=== PATIENT | male | born 1995 | race Caucasian/White ===

== ENCOUNTER → 2017-07-20 | Outpatient (CLI) | payer OTHER ==
[2017-07-20 14:16] LABS: MEAN PLATELET VOLUME 10.4 FL (7.4-10.4); RED BLOOD COUNT 4.95 10^6/uL (4.35-5.85); RED CELL DISTRIBUTION WIDTH 12.4 % (10.0-14.5); WHITE BLOOD COUNT 4.9 10^3/uL (4.3-11.0)
[2017-07-20 14:44] LABS: ALANINE AMINOTRANSFERASE 24 U/L (0-55); ALBUMIN 4.5 GM/DL (3.2-4.5); ANION GAP 6 MMOL/L (5-14); ASPARTATE AMINO TRANSFERASE 52 U/L (5-34); BLOOD UREA NITROGEN 20 MG/DL (7-18); BUN/CREATININE RATIO 25; CALCIUM 9.4 MG/DL (8.5-10.1); CARBON DIOXIDE 30 MMOL/L (21-32); CHLORIDE 105 MMOL/L (98-107); GFR ESTIMATED > 60; GLUCOSE 83 MG/DL (70-105); POTASSIUM 4.2 MMOL/L (3.6-5.0); SODIUM 141 MMOL/L (135-145); TOTAL PROTEIN 6.9 GM/DL (6.4-8.2)
== END ==
LOC: LAB 13:50
PROVIDERS: ATTEND Family Medicine
DX: D72.819 Decreased white blood cell count, unspecified (principal)
CPT/HCPCS: 36415; 80053; 85027; 86308

== ENCOUNTER → 2018-12-15 | Emergency (ER) | payer OTHER | LOC: ER 17:02 ==

== ENCOUNTER 2019-03-12 18:12 | Emergency (ER) | payer OTHER ==
[~2019-03-12] VITALS: Ht 177.8 cm; Wt 69.4 kg
--- OUTSIDE RECORDS SUMMARY | 2019-03-12 18:15 | XMS REPORT | Continuity of Care Document ---
Author Organization Unknown Address Unknown Allergies Active Description Code Type Severity Reaction Onset Reported/Identified Relationship to Patient Clinical Status Yes No Known Medication Allergies NKMA N/A N/A 07/02/2014 Yes No Known Medication Allergies NKMA N/A N/A 07/02/2014 Yes No Known Drug Allergies [id number] Drug Allergy Unknown N/A 12/15/2018 Medications Medication Packaging Start Date Stop Date Route Dosage Sig human papillomavirus vaccine(Gardasil type 6,11,16,18 intramuscular suspension) 0.5 mL 07/04/2015 07/04/2015 IntraMuscular 0.5 mL, IntraMuscular, Once meningococcal conjugate vaccine(Menveo intramuscular injection) 0.5 mL 05/19/2016 05/19/2016 IntraMuscular 0.5 mL, IntraMuscular, Once human papillomavirus vaccine(Gardasil 9) 0.5 mL 05/19/2016 05/19/2016 IntraMuscular 0.5 mL, IntraMuscular, Once erythromycin-benzoyl peroxide topical(Benzamycin 3%-5% topical gel ) 1 katelin 08/11/2016 Topical 1 katelin, Topical, BID, 46 g, 0 Refill( s) midazolam(Versed) 2 mL 01/13/2019 01/13/2019 IV Push 2 mg 2 mg=2 mL, IV Push, q3min, PRN: Sedation fentaNYL(Sublimaze) 1 mL 201801/13/2019 IV Push 50 mcg 50 mcg=1 mL, IV Push, q3min, PRN: Sedation Problems Date Dx Coded Attending Type Code Diagnosis Diagnosed By 07/05/2017 Arely Galan Final R53.83 Other fatigue 08/13/2017 ARELY GALAN MD, Ot D72.819 DECREASED WHITE BLOOD CELL COUNT, UNSPEC 08/13/2017 ARELY GALAN MD, Ot D72.819 DECREASED WHITE BLOOD CELL COUNT, UNSPEC 08/16/2017 ARELY GALAN MD, Ot D72.819 DECREASED WHITE BLOOD CELL COUNT, UNSPEC 08/16/2017 GREEN MD, ARELY R Ot D72.819 DECREASED WHITE BLOOD CELL COUNT, UNSPEC 09/07/2017 ARELY GALAN MD Ot D72.819 DECREASED WHITE BLOOD CELL COUNT, UNSPEC 12/15/2018 ARELY GALAN MD Ot D72.819 DECREASED WHITE BLOOD CELL COUNT, UNSPEC 12/15/2018 TOMASZ PEREA APRN Ot I47.1 SUPRAVENTRICULAR TACHYCARDIA 12/15/2018 TOMASZ PEREA APRN Ot R06.02 SHORTNESS OF BREATH 12/15/2018 ARELY GALAN MD Ot D72.819 DECREASED WHITE BLOOD CELL COUNT, UNSPEC 12/19/2018 TOMASZ PEREA APRN Ot I47.1 SUPRAVENTRICULAR TACHYCARDIA 12/19/2018 TOMASZ PEREA APRN Ot R06.02 SHORTNESS OF BREATH 01/12/2019 TOMASZ PEREA APRN Ot I47.1 SUPRAVENTRICULAR TACHYCARDIA 01/12/2019 TOMASZ PEREA APRN Ot R06.02 SHORTNESS OF BREATH 01/17/2019 Ephraim Prescott Final I34.0 Nonrheumatic mitral (valve) insufficiency 01/17/2019 Ephraim Prescott I47.1 Supraventricular tachycardia Procedures Code [place] [address] Immunization administration (includes percutaneous, intradermal, subcutaneous, or intramuscular injections) ; 1 vaccine (single or combination vaccine/toxoid).. 05/19/2016 26744 Immunization administration (includes percutaneous, intradermal, subcutaneous, or intramuscular injections) ; each additional vaccine (single or combination vaccine/toxoid) (List separately in addition 05/19/2016 56186 Human Papillomavirus vaccine types 6, 11, 16, 18, 31, 33, 45, 52, 58, nonavalent (9vHPV), 3 dose schedule, for intramuscular use 05/19/2016 57876 Meningococcal conjugate vaccine, serogroups A, C, Y and W-135, quadrivalent (MenACWY), for intramuscular use 05/19/2016 Results Test Result Range Automated blood complete blood count (hemogram) panel - 07/20/17 14:10 Blood leukocytes automated count (number/volume) 4.9 10*3/uL 4.3-11.0 Blood erythrocytes automated count (number/volume) 4.95 10*6/uL 4.35-5.85 Venous blood hemoglobin measurement (mass/volume) 15.6 g/dL 13.3-17.7 Blood hematocrit (volume fraction) 45 % 40-54 Automated erythrocyte mean corpuscular volume 91 [foz_us] 80-99 Automated erythrocyte mean corpuscular hemoglobin (mass per erythrocyte) 32 pg 25-34 Automated erythrocyte mean corpuscular hemoglobin concentration measurement ( mass/volume) 35 g/dL 32-36 Automated erythrocyte distribution width ratio 12.4 % 10.0-14.5 Automated blood platelet count (count/volume) 149 10*3/uL 130-400 Automated blood platelet mean volume measurement 10.4 [foz_us] 7.4-10.4 Serum heterophile antibody titer - 07/20/17 14:10 Serum heterophile antibody titer NEGATIVE NEGATIVE Comprehensive metabolic panel - 07/20/17 14:10 Serum or plasma sodium measurement (moles/volume) 141 mmol/L 135-145 Serum or plasma potassium measurement (moles/volume) 4.2 mmol/L 3.6-5.0 Serum or plasma chloride measurement (moles/volume) 105 mmol/L 98-107 Carbon dioxide 30 mmol/L 21-32 Serum or plasma anion gap determination (moles/volume) 6 mmol/L 5-14 Serum or plasma urea nitrogen measurement (mass/volume) 20 mg/dL 7-18 Serum or plasma creatinine measurement (mass/volume) 0.80 mg/dL 0.60-1.30 Serum or plasma urea nitrogen/creatinine mass ratio 25 NRG Serum or plasma creatinine measurement with calculation of estimated glomerular filtration rate > NRG Serum or plasma glucose measurement (mass/volume) 83 mg/dL 70-105 Serum or plasma calcium measurement (mass/volume) 9.4 mg/dL 8.5-10.1 Serum or plasma total bilirubin measurement (mass/volume) 1.0 mg/dL 0.1-1.0 Serum or plasma alkaline phosphatase measurement (enzymatic activity/volume) 134 U/L 40-136 Serum or plasma aspartate aminotransferase measurement (enzymatic activity/ volume) 52 U/L 5-34 Serum or plasma alanine aminotransferase measurement (enzymatic activity/volume ) 24 U/L 0-55 Serum or plasma protein measurement (mass/volume) 6.9 g/dL 6.4-8.2 Serum or plasma albumin measurement (mass/volume) 4.5 g/dL 3.2-4.5 Complete blood count (CBC) with automated white blood cell (WBC) differential - 12/15/18 17:13 Blood leukocytes automated count (number/volume) 6.3 10*3/uL 4.3-11.0 Blood erythrocytes automated count (number/volume) 5.44 10*6/uL 4.35-5.85 Venous blood hemoglobin measurement (mass/volume) 17.2 g/dL 13.3-17.7 Blood hematocrit (volume fraction) 47 % 40-54 Automated erythrocyte mean corpuscular volume 86 [foz_us] 80-99 Automated erythrocyte mean corpuscular hemoglobin (mass per erythrocyte) 32 pg 25-34 Automated erythrocyte mean corpuscular hemoglobin concentration measurement ( mass/volume) 37 g/dL 32-36 Automated erythrocyte distribution width ratio 12.8 % 10.0-14.5 Automated blood platelet count (count/volume) 175 10*3/uL 130-400 Automated blood platelet mean volume measurement 11.5 [foz_us] 7.4-10.4 Automated blood neutrophils/100 leukocytes 49 % 42-75 Automated blood lymphocytes/100 leukocytes 36 % 12-44 Blood monocytes/100 leukocytes 12 % 0-12 Automated blood eosinophils/100 leukocytes 3 % 0-10 Automated blood basophils/100 leukocytes 0 % 0-10 Blood neutrophils automated count (number/volume) 3.1 10*3 1.8-7.8 Blood lymphocytes automated count (number/volume) 2.2 10*3 1.0-4.0 Blood monocytes automated count (number/volume) 0.8 10*3 0.0-1.0 Automated eosinophil count 0.2 10*3/uL 0.0-0.3 Automated blood basophil count (count/volume) 0.0 10*3/uL 0.0-0.1 Comprehensive metabolic panel - 12/15/18 17:13 Serum or plasma sodium measurement (moles/volume) 140 mmol/L 135-145 Serum or plasma potassium measurement (moles/volume) 4.0 mmol/L 3.6-5.0 Serum or plasma chloride measurement (moles/volume) 100 mmol/L 98-107 Carbon dioxide 24 mmol/L 21-32 Serum or plasma anion gap determination (moles/volume) 16 mmol/L 5-14 Serum or plasma urea nitrogen measurement (mass/volume) 19 mg/dL 7-18 Serum or plasma creatinine measurement (mass/volume) 0.99 mg/dL 0.60-1.30 Serum or plasma urea nitrogen/creatinine mass ratio 19 NRG Serum or plasma creatinine measurement with calculation of estimated glomerular filtration rate > NRG Serum or plasma glucose measurement (mass/volume) 119 mg/dL 70-105 Serum or plasma calcium measurement (mass/volume) 10.0 mg/dL 8.5-10.1 Serum or plasma total bilirubin measurement (mass/volume) 0.9 mg/dL 0.1-1.0 Serum or plasma alkaline phosphatase measurement (enzymatic activity/volume) 165 U/L 40-136 Serum or plasma aspartate aminotransferase measurement (enzymatic activity/ volume) 56 U/L 5-34 Serum or plasma alanine aminotransferase measurement (enzymatic activity/volume ) 30 U/L 0-55 Serum or plasma protein measurement (mass/volume) 7.7 g/dL 6.4-8.2 Serum or plasma albumin measurement (mass/volume) 5.1 g/dL 3.2-4.5 Serum or plasma troponin i.cardiac measurement (mass/volume) - 12/15/18 17:13 Serum or plasma troponin i.cardiac measurement (mass/volume) < ng/ mL <0.028 THYROID STIMULATING HORMONE - 12/15/18 17:13 THYROID STIMULATING HORMONE 2.30 u[iU]/mL 0.35-4.94 Serum or plasma thyroxine (T4) free measurement (mass/volume) - 12/15/18 17:13 Serum or plasma thyroxine (T4) free measurement (mass/volume) 1.17 ng/dL 0.70-1.48 Magnesium - 12/15/18 17:13 Magnesium 2.2 mg/dL 1.8-2.4 Encounters ACCT No. Visit Date/Time Discharge Status Pt. Type Provider Facility Loc./Unit Complaint [id number] 01/13/2019 15:59:00 01/13/2019 23:59:00 DIS Outpatient Ephraim Prescott Via [facility] Mur Card TCPA ECHO [facility] [id number] 12/19/2018 09:46:00 12/19/2018 23:59:00 DIS Outpatient Marc Reeves Via [facility] Mur Card TCPA 30 DY MOBILE TEL PREVENTIVCE I47.1 YING [id number] 12/19/2018 07:36:00 12/19/2018 23:59:00 DIS Outpatient Marc Reeves Via [facility] Mur Card NPV POSSIBLE SVT EKG [id number] 12/19/2018 07:26:00 12/19/2018 23:59:00 DIS Outpatient Marc Reeves Via [facility] Mur Card TCPA ECHO [facility] [id number] 10/12/2018 14:12:00 10/12/2018 23:59:00 DIS Outpatient GavinoGokul A [facility] flu shot [id number] 05/19/2016 16:30:00 05/19/2016 23:59:00 DIS Outpatient Arely Galan [facility] menjusten dewittasil [id number] 07/04/2015 10:24:00 07/04/2015 23:59:00 [facility] [id number] 08/12/2016 05:17:15 Document Registration [id number] 01/13/2019 07:06:00 01/13/2019 10:47:00 DIS Outpatient KarynaEphraim beaulieu [facility] on [place] VCHF F3E R93.1- Abnormal findings on diagnostic imaging of heart and [id number] 01/14/2019 05:19:22 Document Registration [id number] 05/20/2016 05:17:17 Document Registration [id number] 09/11/2015 13:27:30 Document Registration [id number] 12/15/2018 17:02:00 12/15/2018 18:10:00 DIS Emergency TOMASZ PEREA APRN Via [facility] ER SOB,TACHYCARDIC [id number] 07/20/2017 13:50:00 07/20/2017 23:59:59 CLS Outpatient ARELY GALAN MD [facility] LAB LEUKOPENIA [id number] 03/12/2019 18:13:00 ACT Emergency DARON ESPINOZA MD Via [facility] ER ARRHYTHMIA
--- NOTE | 2019-03-12 18:17 | NUR ---
UPON GETTING PT HOOKED UP TO THE MONITOR PT STATES IT WENT BACK INTO NORMAL RHYTHM.
--- NOTE | 2019-03-12 18:18 | ED Cardiac General ---
History of Present Illness General Stated Complaint: ARRHYTHMIA Source: patient Exam Limitations: no limitations History of Present Illness Date Seen by Provider: Mar 12, 2019 Time Seen by Provider: 18:18 Initial Comments To ER per private vehicle with reports of an arrhythmia. He's had this about 6 times where he feels sudden onset of tachycardia shortness of breath and chest tightness that occurs with exertion. This is suspected SVT but we've been unable to capture this on EKG. He was here in November with the same but again was in sinus rhythm by the time he arrived here and we were unable to capture it. He does follow with cardiology in [place] where He is from. Upon arrival to ER he states that he felt himself convert in the waiting room and feels back to normal. This happened while playing about 5 minutes prior to arrival Timing/Duration: 1/2 hour Severity: mild Location: central Activities at Onset: none Associated Systoms: Denies Symptoms Allergies and Home Medications Allergies Coded Allergies: No Known Drug Allergies (Unverified , 12/15/18) Home Medications No Active Prescriptions or Reported Meds Patient Home Medication List Home Medication List Reviewed: Yes Review of Systems Review of Systems Constitutional: see HPI EENTM: No Symptoms Reported Respiratory: No Symptoms Reported Cardiovascular: See HPI, Chest Pain, Palpitations Gastrointestinal: See HPI Genitourinary: No Symptoms Reported Musculoskeletal: no symptoms reported Skin: no symptoms reported Psychiatric/Neurological: No Symptoms Reported Endocrine: No Symptoms Reported Hematologic/Lymphatic: No Symptoms Reported Past Rosgkcf-Kdjfav-Mgzemn Hx Patient Social History Recent Foreign Travel: No Contact w/Someone Who Travel: No Past Medical History Surgeries: No Respiratory: No Cardiac: No Neurological: No Genitourinary: No Gastrointestinal: No Musculoskeletal: No Endocrine: No HEENT: No Cancer: No Psychosocial: No Integumentary: No Blood Disorders: No Physical Exam Vital Signs Vital Signs - First Documented 03/12/19 18:12 Temp 98.0 Pulse 91 Resp 16 B/P (MAP) 140/84 (102) Pulse Ox 98 O2 Delivery Room Air Capillary Refill : Height, Weight, BMI Height: 5'10.00" Weight: 150lbs. oz. 68.285626ts; BMI Method:Stated General Appearance: No Apparent Distress, WD/WN HEENT: PERRL/EOMI, TMs Normal Respiratory: No Accessory Muscle Use, No Respiratory Distress Cardiovascular: Regular Rate, Rhythm, Normal Peripheral Pulses Gastrointestinal: Normal Bowel Sounds, Non Tender, Soft Extremity: Normal Capillary Refill, Normal Inspection Neurologic/Psychiatric: Alert, Oriented x3 Skin: Normal Color, Warm/Dry Progress/Results/Core Measures Results/Orders My Orders Orders - TOMASZ PEREA APRN Cbc With Automated Diff (03/12/19 18:14) Magnesium (03/12/19 18:14) Ekg Tracing (03/12/19 18:14) Cardiac Profile 1 (03/12/19 18:14) Comprehensive Metabolic Panel (03/12/19 18:14) Myoglobin Serum (03/12/19 18:14) Protime With Inr (03/12/19 18:14) Partial Thromboplastin Time (03/12/19 18:14) O2 (03/12/19 18:14) Monitor-Rhythm Ecg Trace Only (03/12/19 18:14) Lipid Panel (03/13/19 06:00) Ed Iv/Invasive Line Start (03/12/19 18:14) Vital Signs/I&O 03/12/19 18:12 Temp 98.0 Pulse 91 Resp 16 B/P (MAP) 140/84 (102) Pulse Ox 98 O2 Delivery Room Air Departure Communication (Admissions) 1827-Does not want to have labs drawn or chest xray. will sign refusal form. Was just wanting Ekg to capture rhythm. Follows with cardiology in [place]. Impression Primary Impression: Suspected SVT Disposition: 01 HOME, SELF-CARE Condition: Improved Departure-Patient Inst. Decision time for Depature: 18:27 Referrals: NO,LOCAL PHYSICIAN (PCP/Family) Primary Care Physician Patient Instructions: NO INSTRUCTIONS GIVEN Add. Discharge Instructions: 1. Return to ER for any concerns. 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 Scripts No Active Prescriptions or Reported Meds TOMASZ PEREA APRN Mar 12, 2019 18:18
--- NOTE | 2019-03-12 18:29 | NUR ---
PT DOES NOT WANT LABS OR CHEST X-RAY SINCE HIS HEART IS BACK TO A NORMAL RHYTHM. TOMASZ SOLIS.
[2019-03-12 18:36] VITALS: BP 140/84
== END 2019-03-12 18:36 | disposition home or self-care (01) ==
LOC: EDUNIT# 18:12 → ER 18:13
DX: I49.9 Cardiac arrhythmia, unspecified (principal)
CPT/HCPCS: 93005; 93041